=== PATIENT | male | born 1955 | race Hispanic/Latino ===

== ENCOUNTER → 2020-02-12 | Outpatient (CLI) | payer BC ==
[~2020-02-12] MED LIST: LISI10TA7 PO; METO-408 PO
== END | disposition home or self-care (01) ==
LOC: RAH 08:21
PROVIDERS: ATTEND Internal Medicine
DX: I83.891 Varicose veins of right lower extremity with other complications (principal); L03.115 Cellulitis of right lower limb
CPT/HCPCS: 93971

== ENCOUNTER → 2021-03-15 | Outpatient (CLI) | payer BC, MEDICARE, OTHER ==
[~2021-03-15] MED LIST changes: +LISI10TA24 PO; -LISI10TA7 PO
== END | disposition home or self-care (01) ==
LOC: RAH 11:37
PROVIDERS: ATTEND Internal Medicine
DX: L03.115 Cellulitis of right lower limb (principal); R60.0 Localized edema
CPT/HCPCS: 93971

== ENCOUNTER 2021-09-10 10:24 | Emergency (ER) | payer MEDICARE, OTHER ==
[~2021-09-10] VITALS: Ht 177.8 cm; Wt 117.9 kg
[2021-09-10 11:06] VITALS: BP 143/99
[2021-09-10] MEDS ORDERED: MORPHINE 4 MG SYG IM SCH (12:00)
[2021-09-10] MEDS ORDERED: DEXAMETHASONE SOD PHOSPHATE 4 MG/ML 1ML VIAL IM SCH (12:30)
[2021-09-10] MEDS ORDERED: METH4TAB3 PO (12:56)
[2021-09-10] MEDS ORDERED: ACET1TAB25 PO (12:56)
== END 2021-09-10 14:45 | disposition home or self-care (01) ==
LOC: EDH 10:24
DX: M75.51 Bursitis of right shoulder (principal); I10 Essential (primary) hypertension; I48.91 Unspecified atrial fibrillation; Z79.52 Long term (current) use of systemic steroids; Z79.899 Other long term (current) drug therapy
CPT/HCPCS: 73060; 73030; 96372 ×2; 99284; J1100; J2270

== ENCOUNTER → 2022-06-18 | Outpatient (CLI) | payer MEDICARE, OTHER ==
[~2022-06-18] MED LIST changes: +ACET-2079 PO; +METH4TAB3 PO
== END | disposition home or self-care (01) ==
LOC: RAH 09:45
PROVIDERS: ATTEND Internal Medicine
DX: S80.01XA Contusion of right knee, initial encounter (principal); M25.561 Pain in right knee; X58.XXXA Exposure to other specified factors, initial encounter; Y93.89 Activity, other specified; Y92.89 Other specified places as the place of occurrence of the external cause; Y99.8 Other external cause status
CPT/HCPCS: 73562